=== PATIENT | male | born 1990 | race Caucasian/White ===

== ENCOUNTER 2016-10-17 20:26 | Emergency (ER) | payer OTHER ==
[2016-10-17 20:34] VITALS: BP 160/80; PULSE 91; TEMP 99; BMI 47.0
[2016-10-17] MEDS ORDERED: ERYTHROMYCIN 0.5% OPHTHALMIC OINTMENT 3.5 GM TUBE ONE (21:02)
[2016-10-17] MEDS ORDERED: ERYTHROMYCIN 0.5% OPHTHALMIC OINTMENT 3.5 GM TUBE OD ONE (21:02)
--- NOTE | 2016-10-17 21:08 | PDOC ---
History of Present Illness - General Chief Complaint: Eye Problem Stated Complaint: EYE INJURY Time Seen by Provider: 10/17/16 20:47 History Source: Patient Exam Limitations: No Limitations - History of Present Illness Initial Comments: 10/17/16 21:03 nephew scratched right eye tonight Timing/Duration: 1-3 hours, intermittent Associated Symptoms: denies: chest pain, cough, malaise Past History - Past Medical History Allergies/Adverse Reactions: Allergies Allergy/AdvReac Type Severity Reaction Status Date / Time No Known Allergies Allergy Verified 10/17/16 20:34 Home Medications: Ambulatory Orders NK [No Known Home Medication] 10/17/16 - Psycho/Social/Smoking Cessation Hx Suicidal Ideation: No Smoking History: Never smoked Review of Systems - Review of Systems Constitutional: No: Symptoms Reported, Fever HEENTM: Yes: Eye Pain, Blurred Vision, Tearing. No: Recent change in vision, Double Vision, Cataracts Respiratory: No: Symptoms reported Cardiac (ROS): No: Symptoms Reported ABD/GI: No: Symptoms Reported *Physical Exam - Vital Signs Last Vital Signs Temp Pulse Resp BP Pulse Ox 99.0 F 91 H 20 160/80 96 10/17/16 20:31 10/17/16 20:31 10/17/16 20:31 10/17/16 20:31 10/17/16 20:31 - Physical Exam General Appearance: Yes: Appropriately Dressed. No: Apparent Distress HEENT: positive: TMs Normal, Pharynx Normal, Other (abrasion 1 cm lower center cornea, no FB) Neck: positive: Supple. negative: Tender, Rigid Respiratory/Chest: positive: Lungs Clear Medical Decision Making - Medical Decision Making 10/17/16 21:05 corneal abrasion noted will treat with oinment and f/u with eye MD in 2 days *DC/Admit/Observation/Transfer Diagnosis at time of Disposition: Abrasion of right cornea Qualifiers: Encounter type: initial encounter Qualified Code(s): S05.01XA - Injury of conjunctiva and corneal abrasion without foreign body, right eye, initial encounter - Discharge Dispostion Disposition: HOME Condition at time of disposition: Stable Admit: No - Referrals Referrals: Jared eVlez MD [Staff Physician] - - Patient Instructions Additional Instructions: please call and see eye MD in 2 days for followup; eye ointment 3 times daily until MD clears you; motri 400mg for pain take tonight
== END 2016-10-17 21:11 | disposition home or self-care (01) ==
LOC: JERFT 20:26
DX: S05.01XA Injury of conjunctiva and corneal abrasion without foreign body, right eye, initial encounter (principal); X58.XXXA Exposure to other specified factors, initial encounter; Y93.9 Activity, unspecified
CPT/HCPCS: 99281-25

== ENCOUNTER 2018-10-03 11:02 | Emergency (ER) | payer OTHER ==
[2018-10-03 11:18] VITALS: BP 141/92; PULSE 83; TEMP 98.2; BMI 54.5
--- NOTE | 2018-10-03 12:08 | PDOC ---
History of Present Illness - General Chief Complaint: Eye Problem Stated Complaint: EYE PROBLEM Time Seen by Provider: 10/03/18 11:36 History Source: Patient Exam Limitations: No Limitations - History of Present Illness Initial Comments: 10/03/18 12:07 Patient came for evaluation of itchiness, dryness and mild swelling to left eyelid. States onset was gradual this week woke up this morning with swelling in worsened itchiness. Denies changes in soaps, creams, is no medications or creams for resolution. Denies drainage from in her eye or visual changes. No recent trauma Occurred: reports: yesterday, last week Pain Location: reports: face Modifying Factors: improves with: None Past History - Travel Traveled outside of the country in the last 30 days: No Close contact w/someone who was outside of country & ill: No - Past Medical History Allergies/Adverse Reactions: Allergies Allergy/AdvReac Type Severity Reaction Status Date / Time No Known Allergies Allergy Verified 10/03/18 11:14 Home Medications: Ambulatory Orders Erythromycin 0.5% Eye Ointment [Erythromycin 0.5% Eye Ointment -] 1 applic OU TID 5 Days #1 tube 10/03/18 COPD: No - Suicide/Smoking/Psychosocial Hx Smoking History: Never smoked Review of Systems - Review of Systems Able to Perform ROS?: Yes Is the patient limited Indonesian proficient: Yes Constitutional: Yes: See HPI. No: Symptoms Reported, Fever, Malaise HEENTM: Yes: Symptoms Reported, See HPI, Eye Pain (eyelid itchiness , not pain) . No: Blurred Vision, Tearing Respiratory: No: Symptoms reported All Other Systems: Reviewed and Negative *Physical Exam - Vital Signs Last Vital Signs Temp Pulse Resp BP Pulse Ox 98.2 F 83 16 141/92 99 10/03/18 11:16 10/03/18 11:16 10/03/18 11:16 10/03/18 11:16 10/03/18 11:16 - Physical Exam General Appearance: Yes: Nourished, Appropriately Dressed. No: Apparent Distress HEENT: positive: ARMANDO (no redness, swelling, exudate noted from eyes, left lid appears to be mildly excoriated with some dryness and flakiness consistent with appearance of eczema. No evidence of stye or conjunctivitis.), Normal ENT Inspection, TMs Normal, Pharynx Normal Neck: positive: Supple. negative: Tender, Lymphadenopathy (R), Lymphadenopathy (L) Respiratory/Chest: positive: Lungs Clear, Normal Breath Sounds Gastrointestinal/Abdominal: positive: Soft. negative: Tender Musculoskeletal: positive: Normal Inspection Extremity: positive: Normal Capillary Refill Integumentary: positive: Normal Color, Dry, Warm Neurologic: positive: manager office II-XII NML intact, Fully Oriented, Alert, Normal Mood/ Affect, Normal Response, Motor Strength 5/5 Moderate Sedation - Procedure Monitoring Vital Signs: Procedure Monitoring Vital Signs Temperature 98.2 F 10/03/18 11:16 Pulse Rate 83 10/03/18 11:16 Respiratory Rate 16 10/03/18 11:16 Blood Pressure 141/92 10/03/18 11:16 O2 Sat by Pulse Oximetry (%) 99 10/03/18 11:16 Progress Note - Progress Note Progress Note: Eyelid Eczema- will treat with Erythromycin opthalmic for moisterizing purpose *DC/Admit/Observation/Transfer Diagnosis at time of Disposition: Eczema of eyelid Qualifiers: Laterality: left Qualified Code(s): H01.136 - Eczematous dermatitis of left eye , unspecified eyelid - Discharge Dispostion Disposition: HOME Condition at time of disposition: Stable Decision to Admit order: No - Referrals - Patient Instructions Printed Discharge Instructions: Eczema (Alternative Therapy) Additional Instructions: Rest, keep cool and dry- avoid strenuous activity Less hot showers, no abrasive soaps May use heavy creams like Eucerin or Cetaphil to keep skin moist May use Benadryl at night for antihistamine, Zyrtec/ Laura or Claritin for daytime antihistamine use to help with itching May use [id number] hydrocortisone cream on all areas except face Erythromycin ointment to eyelid for moisturizing purposes Followup with PMD in one week if no resolution Make appointment with treasury assistant for evaluation when possible - Post Discharge Activity Forms/Work/School Notes: Back to Work
[2018-10-03] MEDS ORDERED: ERYTHROMYCIN 0.5% OPHTHALMIC OINTMENT 3.5 GM TUBE OS ONE (12:11)
[2018-10-03] MEDS ORDERED: ERYTHROMYCIN 0.5% OPHTHALMIC OINTMENT 3.5 GM TUBE ONE (12:13)
== END 2018-10-03 12:16 | disposition home or self-care (01) ==
LOC: JERFT 11:02
DX: H01.136 Eczematous dermatitis of left eye, unspecified eyelid (principal)
CPT/HCPCS: 99281-25

== ENCOUNTER 2018-10-04 16:09 | Emergency (ER) | payer OTHER ==
[2018-10-04 16:20] VITALS: BP 121/68; PULSE 81; TEMP 98.5; BMI 55.7
--- NOTE | 2018-10-04 16:43 | PDOC ---
History of Present Illness - General Chief Complaint: Cold Symptoms Stated Complaint: EYE PROBLEM Time Seen by Provider: 10/04/18 16:19 History Source: Patient Exam Limitations: No Limitations - History of Present Illness Initial Comments: 10/04/18 16:38 28 year old male with no medical or surgical history present with left eye irritation. Patient seen in this ed for the same, treated with erythromycin. Reports that his sister told him it is cellulits. Symptoms remains the same, as per patient, itching, eye, irritation and foreign body sensation. Denies blurred vision or vision change. Timing/Duration: 24 hours, other Severity: mild Modifying Factors: improves with: medication Associated Symptoms: reports: denies symptoms Aspirin Received prior to arrival: Yes: no aspirin today Beta Shanel Contraindications(Core Measure): Yes: Not Prescribed Past History - Travel Traveled outside of the country in the last 30 days: No - Past Medical History Allergies/Adverse Reactions: Allergies Allergy/AdvReac Type Severity Reaction Status Date / Time No Known Allergies Allergy Verified 10/03/18 11:14 Home Medications: Ambulatory Orders Ketotifen Fumarate [Zaditor] 5 ml OP TID #1 bottle 10/04/18 COPD: No - Immunization History Immunization Up to Date: Yes - Suicide/Smoking/Psychosocial Hx Smoking History: Never smoked Information on smoking cessation initiated: No Hx Alcohol Use: No Drug/Substance Use Hx: No Review of Systems - Review of Systems Able to Perform ROS?: Yes Is the patient limited Hong [place]er proficient: No Constitutional: No: Chills, Fever, Weight Stable HEENTM: Yes: Other (itching eyes). No: Eye Pain Respiratory: Yes: Cough Cardiac (ROS): No: Chest Pain, Edema : No: Burning, Dysuria, Discharge Musculoskeletal: No: Back Pain, Gout, Joint Pain Integumentary: No: Bruising Neurological: No: Numbness, Paresthesia *Physical Exam - Vital Signs Last Vital Signs Temp Pulse Resp BP Pulse Ox 98.5 F 81 16 121/68 99 10/04/18 16:12 10/04/18 16:12 10/04/18 16:12 10/04/18 16:12 10/04/18 16:12 - Physical Exam General Appearance: Yes: Nourished, Appropriately Dressed HEENT: positive: Scleral Icterus (L), Other (left eyelid swelling, + left conjunctiva erythema, no drainage noted) Neck: positive: Supple Respiratory/Chest: positive: Lungs Clear Cardiovascular: positive: Regular Rhythm, Regular Rate, S1, S2 Neurologic: positive: financial systems director II-XII NML intact, Fully Oriented, Alert, Motor Strength 5/5 Moderate Sedation - Procedure Monitoring Vital Signs: Procedure Monitoring Vital Signs Temperature 98.5 F 10/04/18 16:12 Pulse Rate 81 10/04/18 16:12 Respiratory Rate 16 10/04/18 16:12 Blood Pressure 121/68 10/04/18 16:12 O2 Sat by Pulse Oximetry (%) 99 10/04/18 16:12 Medical Decision Making - Medical Decision Making 10/04/18 16:42 28 year old male with no medical or surgical history complaining of left eye irritation x 2 days. Plan zadador eye drops *DC/Admit/Observation/Transfer Diagnosis at time of Disposition: Irritation of left eye - Discharge Dispostion Disposition: HOME Condition at time of disposition: Good Decision to Admit order: No - Prescriptions Prescriptions: Ketotifen Fumarate [Zaditor] 5 ml OP TID #1 bottle - Referrals Referrals: Kem Gonzalez [Primary Care Provider] - - Patient Instructions Printed Discharge Instructions: DI for Conjunctivitis Additional Instructions: Please wash hand frequently especially after touching ey Please return for vision loss Call doctor for follow up appointment - Post Discharge Activity
== END 2018-10-04 16:59 | disposition home or self-care (01) ==
LOC: JERFT 16:09
DX: H57.89 Other specified disorders of eye and adnexa (principal)
CPT/HCPCS: 99281-25

== ENCOUNTER 2020-08-06 13:14 | Emergency (ER) | payer OTHER ==
[2020-08-06 13:23] VITALS: BP 144/86; PULSE 80; TEMP 97.8; BMI 61.7
[2020-08-06] MEDS ORDERED: CLINDAMYCIN 600MG PREMIX IVPB 600 MG/50 ML BAG IVPB ONE ×2 (13:50→13:52)
== END 2020-08-06 14:48 | disposition home or self-care (01) ==
LOC: JERFT 13:14
DX: K04.7 Periapical abscess without sinus (principal)
CPT/HCPCS: 99284-25

== ENCOUNTER 2020-11-08 19:23 | Emergency (ER) | payer OTHER | END 2020-11-08 19:27 | disposition home or self-care (01) | LOC: JVIRT 19:23 | DX: Z11.52 Encounter for screening for COVID-19 (principal) | CPT/HCPCS: C9803; G2251-GT; Q3014-GT; U0003 ==

== ENCOUNTER 2021-03-30 20:01 | Emergency (ER) | payer OTHER ==
[2021-03-30 20:06] VITALS: BP 142/92; PULSE 99; TEMP 97.6; BMI 60.2
== END 2021-03-30 21:03 | disposition home or self-care (01) ==
LOC: JERFT 20:01
DX: S05.02XA Injury of conjunctiva and corneal abrasion without foreign body, left eye, initial encounter (principal)
CPT/HCPCS: 99283-25